=== PATIENT | female | born 1985 | race Caucasian/White ===

== ENCOUNTER → 2019-10-07 08:37 | Outpatient (CLI) | payer OTHER, SELFPAY ==
[2019-10-06 15:35] LABS: MANUAL DIFFERENTIAL MANUAL DIFFERENTIAL (MANUAL DIFF)
[2019-10-06 15:59] LABS: Basophils # 0.1 K/mm3 (0-0.2); Basophils % 1.5 % (0.1-2.0); Eosinophils # 0.1 K/mm3 (0.0-0.4); Eosinophils % 1.7 % (0.1-12.0); Hematocrit 41.8 % (37.0-47.0); Mean Corpuscular HGB Conc 33.5 g/dL (31.8-35.4); Mean Corpuscular Hemoglobin 29.8 pg (27.0-31.2); Mean Corpuscular Volume 89.1 fl (81-99); Monocytes # 0.4 K/mm3 (0.1-1.0); Monocytes % 4.8 % (1.7-9.3); Neutrophils # 4.2 K/mm3 (1.8-7.8); Platelet Count 295 K/mm3 (142-424); Red Blood Count 4.69 M/mm3 (4.20-5.40); Red Cell Distribution Width 12.8 % (11.5-17.5); White Blood Count 7.8 K/mm3 (4.8-10.8)
[2019-10-06 16:33] LABS: Eosinophils % 1 % (0-3); Lymphocytes % 45 % (10-50); Monocytes % 7 % (2-9); Neutrophils % 47 % (42-76); Platelet Estimate Normal; RBC Morphology Normal; Total Cells Counted 100
== END ==
PROVIDERS: Visit Provider Otolaryngology
DX: R22.1 Localized swelling, mass and lump, neck (principal)
CPT/HCPCS: 36415; 85007; 85014; 85018; 85048; 85049

== ENCOUNTER → 2019-10-14 14:00 | Outpatient (CLI) | payer OTHER, SELFPAY ==
--- NOTE | 2019-10-14 14:05 | US_ITS ---
PROCEDURE: US SOFT TISSUE HEAD AND NECK CLINICAL INDICATION: left neck mass Palpable abnormality left neck near the hairline COMPARISON: No exams were available for comparison FINDINGS: In the subcutaneous region of the left neck there is a hypoechoic nodule which measures 9 x 5 mm. This has a small at central area of increased echogenicity and may be due to a small lymph node. No other significant anomalies are evident IMPRESSION: Hypoechoic nodule in the left neck measures 9 x 5 mm and may be due to small lymph node Dictated by: Ishan Jaquez MD 10/14/2019 16:56 Electronically signed by Ishan Jaquez MD in [place] 10/14/2019 16:56
== END ==
PROVIDERS: PCP Family Medicine; Visit Provider Otolaryngology
DX: R22.1 Localized swelling, mass and lump, neck (principal)
CPT/HCPCS: 76536

== ENCOUNTER 2020-06-10 15:30 | Emergency (ER) | payer SELFPAY ==
[2020-06-10 15:38] VITALS: BP 147/98; PULSE 84; RESP 19; TEMP 36.8; O2SAT 99; BMI 30.1
--- NOTE | 2020-06-10 15:43 | HMH.EDUTC ---
[facility] [place] Clinical Impression: Exposure to COVID-19 virus Disposition: Home, Self-Care Condition on Discharge: Good Instructions: Preventing the Spread of Coronavirus Discharge Instructions Additional Instructions: You have been tested for COVID19. Please isolate yourself as if you are positive until test results received. Referrals: Fran Ruiz MD [Primary Care Provider] - Time of Disposition: 15:49 Medical Decision Making - Jose Inquiry Pt receiving controlled substance: No Vital Signs: 06/10/20 15:38 Temperature 98.2 F Temperature Source Oral Pulse Rate [Radial] 84 Respiratory Rate 19 Blood Pressure [Right Arm] 147/98 H Blood Pressure Mean [Right Arm] 114 Blood Pressure Source [Right Arm] Automatic Cuff Blood Pressure Position [Right Arm] Sitting 02 Sat by Pulse Oximetry 99 Oxygen Delivery Method Room Air Orders (Tests/Meds): ORDERS Category Date Time Status Covid-19 Nasal PCR ([facility]) Routine Lab 06/10/20 15:34 Ordered [facility] [place] - General Stated complaint: Covid test Time Seen by Provider: 06/10/20 15:44 Mode of Arrival: Ambulatory Source of Information: Patient Limitations: No Limitations Description of Symptoms (Recalled from Triage Doc. by RN): COVID TEST, COUGH, CONGESTION, FATIGUE SINCE THIS MORNING. HEENT Symptoms (Recalled from RN notes): No Resp Symptoms (Recalled from RN notes): No Skin Symptoms (Recalled from RN notes): No MS Symptoms (Recalled from RN notes): No Functional Status (Recalled from RN notes): WNL - History of Present Illness Provider Complaint: Cough, body aches, runny nose X 1 day. No known exposure to COVID19 but she does work at a vet clinic. Her sister started running a fever last night and got tested today but does not have results yet. Onset (ago): day(s) (1) Relieving factors: none Exacerbating factors: none Associated symptoms: denies other symptoms Treatments prior to arrival: none - Related Data Home Medications Medication Instructions Recorded Confirmed No Known Home Medications 10/20/19 10/20/19 Allergies Allergy/AdvReac Type Severity Reaction Status Date / Time No Known Allergies Allergy Verified 10/20/19 10:07 - Worker's Comp Is this a Worker's Comp case?: No [facility] History - Hepatitis A Screen Drug use history?: No High risk sexual behaviors?: No History of sexually transmitted infection?: No Currently employed?: No Childcare worker?: No Do you have indoor plumbing?: Yes Do you have electricity?: Yes Attestation statement:: This patient has been screened for Hepatitis A risk factors. I have reviewed the patient's past medical history: Yes Other Surgeries: Yes: Other Comment: knee- 1999 - Social History Smoking Status: Never smoker Alcohol Intake: never Substance Use Type: denies use Occupational Status: other Housing: house Family Hx:: No significant family history ROS Obtained: Yes All systems reviewed & no additional complaints - Constitutional Constitutional: Reports body ache - ENT Ears, Nose, Mouth, and Throat: Reports nasal congestion - Respiratory Respiratory: Yes cough Physical Exam - General General appearance: alert, in no apparent distress - Head Head exam: normocephalic - Eye Eye exam: Present: PERRL - ENT ENT exam: Present: normal oropharynx - Neck Neck exam: Present: normal inspection. Absent: lymphadenopathy - Chest Chest inspection: Present: normal inspection, symmetric chest wall rise - Respiratory Respiratory exam: Present: normal lung sounds bilaterally - Cardiovascular Cardiovascular exam: Present: regular rate, normal rhythm - Neurological Exam Neurological exam: Present: alert, oriented X3 - Psychiatric Psychiatric exam: Present: normal affect, normal mood - Skin Skin exam: Present: warm, dry, intact
[2020-06-10 16:12] VITALS: BP 147/98; PULSE 84; RESP 19; TEMP 36.8; O2SAT 99
--- NOTE | 2020-06-10 20:21 | PC.NURSE ---
Patient notified of positive COVID results. Educated of quarantine.
== END 2020-06-10 16:13 | disposition home or self-care (01) ==
PROVIDERS: Emergency Provider Physician Assistant; PCP Family Medicine
DX: U07.1 COVID-19 (principal)
CPT/HCPCS: 99201; U0003

== ENCOUNTER 2021-10-16 18:11 | Emergency (ER) | payer BC, SELFPAY ==
[2021-10-16 18:30] VITALS: BP 149/93; PULSE 122; RESP 18; TEMP 39.1; O2SAT 98; BMI 25.7
[2021-10-16 19:07] LABS: UTC Influenza A Antigen Positive (Negative); UTC Influenza B Antigen Negative (Negative)
--- NOTE | 2021-10-16 19:20 | HMH.EDUTC ---
[facility] [place]: Influenza Disposition: Home, Self-Care Condition on Discharge: Good Instructions: Influenza, DI for Influenza -- Adult, Oseltamivir Additional Instructions: ? Start Tamiflu today if you are going to take it. Discussed risk and possible benefits. ? Lots of rest ? Increase Fluids water, Gatorade, powerade, pedialyte,if /toddler/child ? Alternate Tylenol and / or ibuprofen as discussed for fever, aches, chills Follow up IMMEDIATELY with your family doctor for new or worsening Symptoms OR no noticeable improvement over the next 48-72 hours, 911 for difficulty or breathing ? You or your child area contagious until no fever, aches, chills for 24 hours with medication for symptoms ? Help Prevent the spread of influenza: ? Wash your hands often. Use soap and water. Wash your hands after you use the bathroom, change a child's diapers, or sneeze. Wash your hands before you prepare or eat food. Use gel hand cleanser that has 60% alcohol, when soap and water are not available. Do not touch your eyes, nose, or mouth unless you have washed your hands first. ? Cover your mouth when you sneeze or cough. Cough into a tissue or the bend of your arm. If you use a tissue, throw it away immediately and wash your hands. ? Clean shared items with a germ-killing building cleaner. Clean table surfaces, doorknobs, and light switches. Do not share towels, silverware, and dishes with people who are sick. Wash bed sheets, towels, silverware, and dishes with soap and water. ? Wear a mask over your mouth and nose if you are sick. The face mask may help protect others from becoming infected with the flu. Wear the mask when in common areas of your home or if you seek care with a healthcare provider. ? Stay away from others if you are sick. Stay at home until 24 hours after your fever and symptoms are gone. Prescriptions: Oseltamivir Phosphate [Tamiflu 75mg Capsule] 75 mg PO BID #10 cap Transmission Status: Pending to [id number] Referrals: Fran Ruiz MD [Primary Care Provider] - As needed Forms: Work/School Release Time of Disposition: 19:27 Medical Decision Making - Jose Inquiry Pt receiving controlled substance: No Jose was queried for this patient: No Vital Signs: 10/16/21 18:30 Temperature 102.4 F H Temperature Source Oral Pulse Rate [Right Brachial] 122 H Respiratory Rate 18 Blood Pressure [Right Arm] 149/93 H Blood Pressure Mean [Right Arm] 111 Blood Pressure Source [Right Arm] Automatic Cuff Blood Pressure Position [Right Arm] Sitting 02 Sat by Pulse Oximetry 98 Oxygen Delivery Method Room Air - Lab Data Lab results reviewed: Yes: I reviewed the patient's lab results. Lab Results 10/16/21 19:06: Influenza Type A Ag Positive A, Influenza Type B Ag Negative Orders (Tests/Meds): ED MEDICATIONS Discontinued Medications Generic Name Dose Route Start Last Admin Trade Name Freq PRN Reason Stop Dose Admin Ibuprofen 800 mg 10/16/21 19:15 10/16/21 19:10 Ibuprofen 400 Mg Tablet PO 10/16/21 19:16 800 mg ONCE ONE Administration [facility] [place] - General Stated complaint: flu test, exposed 10/13/21 Time Seen by Provider: 10/16/21 19:00 Mode of Arrival: Ambulatory Source of Information: Patient Limitations: No Limitations Description of Symptoms (Recalled from Triage Doc. by RN): PATIENT C/O HEADACHE, BODY ACHES, FEVER AND COUGH SINCE THURSDAY. HEENT Symptoms (Recalled from RN notes): Yes Resp Symptoms (Recalled from RN notes): No Skin Symptoms (Recalled from RN notes): No MS Symptoms (Recalled from RN notes): No Functional Status (Recalled from RN notes): WNL - History of Present Illness Provider Complaint: Patient states that she was recently around someone that tested positive for the flu States that on Thursday she had a headache and felt like her allergies was acting up State that yesterday she started feeling achy all over and felt like she had a fever States that
[2021-10-16 19:29] VITALS: BP 149/93; PULSE 122; RESP 18; TEMP 37.7; O2SAT 98
== END 2021-10-16 19:32 | disposition home or self-care (01) ==
PROVIDERS: Emergency Provider Nurse Practitioner; PCP Family Medicine
DX: J10.1 Influenza due to other identified influenza virus with other respiratory manifestations (principal)
CPT/HCPCS: 87804; 99212; G0463